=== PATIENT | male | born 1955 | race Caucasian/White ===

== ENCOUNTER → 2016-11-11 | Outpatient (CLI) | payer OTHER, MEDICARE ==
[~2016-11-11] MED LIST: ADVAIR 250-501 EACH INH; ASPIR 8181 MG PO; ASPIR-LOW81 MG PO; ASPIRIN CHEWABL81 MG PO; ASPIRIN325 MG PO; ASPIRIN81 MG PO; BACTRIM DS TAB1 EACH PO; CITALOPRAM HBR20 MG PO; CRESTOR10 MG PO; CUBICIN 500 MG500 MG IV; FENOFIBRATE160 MG PO; HYDROCHLOROTHIA25 MG PO; IMDUR ER TAB 6060 MG PO; INCRUSE ELLI62.5 MCG INH; INVANZ1 GM IV; ISOSORBIDE MONO60 MG PO; KLONOPIN TAB 00.5 MG PO; LEVAQUIN500 MG PO; LEVEMIR100 UNIT/1 SC; LISINOPRIL-HCT1 EAC1 PO; LOPRESSOR50 MG PO; LORTAB 7.5-3251 EACH PO; LYRICA100 MG PO; METHADONE HCL TA5 MG PO; NEXIUM40 MG PO; NITROSTAT 0.40.4 MG SL; NORTRIPTYLINE H50 MG PO; NOVOLOG 10100 UNITS/ INJ; NOVOLOG 10100 UNITS1 SC; NOVOLOG 10100 UNITS2 INJ; PERCOCET 7.5-31 EACH PO; PHENERGAN 12.12.5 M1 PO; PLAVIX 75 MG TA75 MG PO; RANEXA500 MG PO; SINGULAIR10 MG PO; SPIRIVA HANDIH18 MCG INH; SPIRIVA18 MCG INH; TOPROL XL 50 MG50 MG PO; VENTOLIN HFA 66.7 GM INH; VENTOLIN/PROVE0.5 ML INH; VITAMIN B-121000 MC2 SL; VITAMIN D 11000 UNIT PO; ZESTORETIC 20-1 EACH PO; ZYVOX600 MG PO
[2016-11-11 16:48] LABS: HEMOGLOBIN 14.2 gm/dl (14.0-17.5); RED BLOOD COUNT 4.55 M/UL (4.20-5.50); WHITE BLOOD COUNT 5.6 K/UL (4.5-11.0)
[2016-11-11 16:55] LABS: BUN/CREATININE RATIO 10 (0-10)
== END ==
LOC: LAB 15:57
PROVIDERS: Internal Medicine Cardiovascular Disease
DX: I20.9 Angina pectoris, unspecified (principal); I25.10 Atherosclerotic heart disease of native coronary artery without angina pectoris; R42 Dizziness and giddiness; I10 Essential (primary) hypertension; R55 Syncope and collapse; R00.2 Palpitations; R91.8 Other nonspecific abnormal finding of lung field
CPT/HCPCS: 36415; 71020; 80048; 85025

== ENCOUNTER → 2016-11-13 | Outpatient (CLI) | payer OTHER, MEDICARE ==
[~2016-11-13] VITALS: Ht 172.7 cm; Wt 99.8 kg
== END | disposition home or self-care (01) ==
LOC: CATH 06:54
DX: I25.119 Atherosclerotic heart disease of native coronary artery with unspecified angina pectoris (principal); R94.39 Abnormal result of other cardiovascular function study; I10 Essential (primary) hypertension; E11.9 Type 2 diabetes mellitus without complications; I47.2 Ventricular tachycardia; I49.8 Other specified cardiac arrhythmias; I49.5 Sick sinus syndrome; I25.2 Old myocardial infarction; E78.5 Hyperlipidemia, unspecified; F17.210 Nicotine dependence, cigarettes, uncomplicated; J44.9 Chronic obstructive pulmonary disease, unspecified; Z95.5 Presence of coronary angioplasty implant and graft; G47.33 Obstructive sleep apnea (adult) (pediatric); R42 Dizziness and giddiness; R55 Syncope and collapse; Z88.8 Allergy status to other drugs, medicaments and biological substances; Z79.82 Long term (current) use of aspirin; Z79.4 Long term (current) use of insulin; Z79.891 Long term (current) use of opiate analgesic; Z79.899 Other long term (current) drug therapy; M75.01 Adhesive capsulitis of right shoulder; G89.29 Other chronic pain; I51.89 Other ill-defined heart diseases; M62.9 Disorder of muscle, unspecified; M48.8X6 Other specified spondylopathies, lumbar region; K21.9 Gastro-esophageal reflux disease without esophagitis; M25.519 Pain in unspecified shoulder; M96.1 Postlaminectomy syndrome, not elsewhere classified; I27.2 Other secondary pulmonary hypertension
CPT/HCPCS: 82962; C1769; J1644; J2250; J7030; Q0163; Q9963

== ENCOUNTER → 2017-01-27 | Outpatient (CLI) | payer MEDICARE ==
[2017-01-27 07:41] LABS: HEMOGLOBIN 14.4 gm/dl (14.0-17.5); RED BLOOD COUNT 4.59 M/UL (4.20-5.50)
[2017-01-27 08:13] LABS: BUN/CREATININE RATIO 19 (0-10)
== END ==
LOC: LAB 07:13
PROVIDERS: Internal Medicine Cardiovascular Disease
DX: R00.2 Palpitations (principal); R55 Syncope and collapse; I47.2 Ventricular tachycardia; I49.5 Sick sinus syndrome; I10 Essential (primary) hypertension
CPT/HCPCS: 36415; 71020; 80048; 85025

== ENCOUNTER → 2017-01-28 | Outpatient (CLI) | payer MEDICARE | LOC: CATH 09:14 | DX: I25.119 Atherosclerotic heart disease of native coronary artery with unspecified angina pectoris (principal); R55 Syncope and collapse; I47.2 Ventricular tachycardia; I49.8 Other specified cardiac arrhythmias; I25.2 Old myocardial infarction; I49.5 Sick sinus syndrome; I99.8 Other disorder of circulatory system; I51.9 Heart disease, unspecified; I27.2 Other secondary pulmonary hypertension; J44.9 Chronic obstructive pulmonary disease, unspecified; E11.9 Type 2 diabetes mellitus without complications; E78.5 Hyperlipidemia, unspecified; K21.9 Gastro-esophageal reflux disease without esophagitis; F17.200 Nicotine dependence, unspecified, uncomplicated; Z98.61 Coronary angioplasty status; Z88.8 Allergy status to other drugs, medicaments and biological substances; Z79.82 Long term (current) use of aspirin; Z79.02 Long term (current) use of antithrombotics/antiplatelets; Z79.891 Long term (current) use of opiate analgesic; Z79.4 Long term (current) use of insulin; Z79.899 Other long term (current) drug therapy | CPT/HCPCS: 82962; 93620; C1730; C1766; J1644; J2250; J3010; J7040 ==

== ENCOUNTER 2020-10-06 15:57 | Inpatient (IN) | payer MEDICARE, OTHER ==
[~2020-10-06] VITALS: Ht 170.2 cm; Wt 82.6 kg
[~2020-10-06 15:57] MED LIST changes: +ALBUTEROL SULFATE INH; +ASPIRIN EC81 MG PO; +CELEXA20 MG PO; +ECOTRIN81 MG PO; +ELIQUIS5 MG PO; +FLONASE 0.05% N16 GM; +FLOVENT 44 MCG7.9 GM INH; +HUMALOG100 UNIT/3 SC; +HYDROCODON-ACE1 EAC2 PO; +ISOSORBIDE MON120 MG PO; +KETOCONAZOLE; +LEVEMIR100 UNIT/1 SQ; +LYRICA200 MG PO; +MONTELUKAST SOD10 MG PO; +NITROSTAT0.4 MG SL; +NORCO 7.5-3251 EACH PO; +ORBACTIV400 MG IV; +RANEXA1000 MG PO; +ROCEPHIN 22 G/50 ML IV; +ROCEPHIN IV; +VITAMIN D32000 UNI1 PO
[2020-10-06 20:07] LABS: HEMOGLOBIN 14.6 gm/dl (14.0-17.5); RED BLOOD COUNT 4.57 M/UL (4.20-5.50); WHITE BLOOD COUNT 7.7 K/UL (4.5-11.0)
[2020-10-06 20:11] LABS: BUN/CREATININE RATIO 19 (0-10)
[2020-10-06] MEDS ORDERED: CEPHALEXIN500 MG PO (22:04)
[2020-10-06] MEDS ORDERED: TRILEPTAL600 MG PO (22:08)
[2020-10-06] MEDS ORDERED: SPIRIVA RESPIMAT4 GM INH (22:10)
[2020-10-06] MEDS ORDERED: DESYREL 50 MG T50 MG PO (22:10)
[2020-10-06] MEDS ORDERED: CLOPIDOGREL75 MG PO (22:12)
[2020-10-06] MEDS ORDERED: PAMELOR50 MG PO (22:14)
[2020-10-07 07:37] LABS: HEMOGLOBIN 11.4 gm/dl (14.0-17.5); RED BLOOD COUNT 3.71 M/UL (4.20-5.50); WHITE BLOOD COUNT 5.3 K/UL (4.5-11.0)
[2020-10-07 08:03] LABS: BUN/CREATININE RATIO 17 (0-10)
[2020-10-08 05:16] LABS: HEMOGLOBIN 12.9 gm/dl (14.0-17.5); RED BLOOD COUNT 4.03 M/UL (4.20-5.50); WHITE BLOOD COUNT 5.4 K/UL (4.5-11.0)
[2020-10-08 05:54] LABS: BUN/CREATININE RATIO 16 (0-10)
[2020-10-09 05:39] LABS: BUN/CREATININE RATIO 11 (0-10)
[2020-10-10 04:14] LABS: WHITE BLOOD COUNT 4.6 K/UL (4.5-11.0)
[2020-10-10 04:21] LABS: BUN/CREATININE RATIO 11 (0-10)
[2020-10-10 04:26] LABS: RED BLOOD COUNT 3.51 M/UL (4.20-5.50)
[2020-10-10] MEDS ORDERED: CEPHALEXIN500 MG PO (11:43)
[2020-10-10] MEDS ORDERED: ISOSORBIDE MONO30 MG PO (11:54)
[2020-10-10] MEDS ORDERED: LASIX40 MG PO (11:54)
[2020-10-10] MEDS ORDERED: LOPRESSOR50 MG PO (11:54)
== END 2020-10-10 14:10 | disposition home or self-care (01) | DRG 503 ==
LOC: ER1 15:57 → M/S 21:24 → CDU 21:24 → M/S 10-07 01:01
PROVIDERS: Emergency Medicine; Internal Medicine; Podiatrist Foot & Ankle Surgery; ADMIT Internal Medicine
PROC: 0Y6P0Z0 Detachment at Right 1st Toe, Complete, Open Approach (ICD-10-PCS; principal; 2020-10-07 13:23)
DX: M00.071 Staphylococcal arthritis, right ankle and foot (principal); A48.0 Gas gangrene; E11.52 Type 2 diabetes mellitus with diabetic peripheral angiopathy with gangrene; E87.1 Hypo-osmolality and hyponatremia; N17.9 Acute kidney failure, unspecified; Z20.822 Contact with and (suspected) exposure to COVID-19; E11.621 Type 2 diabetes mellitus with foot ulcer; L97.519 Non-pressure chronic ulcer of other part of right foot with unspecified severity; J44.9 Chronic obstructive pulmonary disease, unspecified; E11.65 Type 2 diabetes mellitus with hyperglycemia; E11.40 Type 2 diabetes mellitus with diabetic neuropathy, unspecified; E11.22 Type 2 diabetes mellitus with diabetic chronic kidney disease; N18.2 Chronic kidney disease, stage 2 (mild); M65.871 Other synovitis and tenosynovitis, right ankle and foot; I25.10 Atherosclerotic heart disease of native coronary artery without angina pectoris; B95.61 Methicillin susceptible Staphylococcus aureus infection as the cause of diseases classified elsewhere; I48.91 Unspecified atrial fibrillation; F41.9 Anxiety disorder, unspecified; F17.210 Nicotine dependence, cigarettes, uncomplicated; E11.628 Type 2 diabetes mellitus with other skin complications; L03.031 Cellulitis of right toe; E86.0 Dehydration; Z82.49 Family history of ischemic heart disease and other diseases of the circulatory system; Z88.8 Allergy status to other drugs, medicaments and biological substances; Z95.5 Presence of coronary angioplasty implant and graft; Z83.3 Family history of diabetes mellitus; Z80.9 Family history of malignant neoplasm, unspecified; Z79.4 Long term (current) use of insulin; Z79.899 Other long term (current) drug therapy; Z79.01 Long term (current) use of anticoagulants; Z79.02 Long term (current) use of antithrombotics/antiplatelets
CPT/HCPCS: 36415; 73630; 80048; 80053; 80202; 82550; 82553; 82962; 83605; 83735; 84100; 84484; 85025; 85027; 85610; 85652; 85730; 86140; 87040; 87070; 87077; 87186; 87205; 94640; 94664; 94760; 96365; 96366; 96368; 96372; 96375; 96376; 99284; J1650; J2250; J2270; J2405; J2543; J2795; J3010; J3370; J7030; J7070; U0002

== ENCOUNTER 2021-05-09 14:37 | Inpatient (IN) | payer MEDICARE, OTHER ==
[~2021-05-09] VITALS: Ht 175.3 cm; Wt 83.9 kg
[~2021-05-09 14:37] MED LIST changes: +CEPHALEXIN500 MG PO; +CLOPIDOGREL75 MG PO; +DESYREL 50 MG T50 MG PO; +ISOSORBIDE MONO30 MG PO; +LASIX40 MG PO; +PAMELOR50 MG PO; +SPIRIVA RESPIMAT4 GM INH; +TRILEPTAL600 MG PO
[2021-05-09 14:59] LABS: HEMOGLOBIN 14.7 gm/dl (14.0-17.5); RED BLOOD COUNT 4.72 M/UL (4.20-5.50); WHITE BLOOD COUNT 4.2 K/UL (4.5-11.0)
[2021-05-09 15:26] LABS: BUN/CREATININE RATIO 30 (0-10)
[2021-05-10 01:32] LABS: HEMOGLOBIN 12.8 gm/dl (14.0-17.5)
[2021-05-10 01:34] LABS: RED BLOOD COUNT 4.24 M/UL (4.20-5.50)
[2021-05-10 02:01] LABS: BUN/CREATININE RATIO 35 (0-10)
[2021-05-10 07:57] LABS: HEMOGLOBIN 12.8 gm/dl (14.0-17.5); RED BLOOD COUNT 4.16 M/UL (4.20-5.50)
[2021-05-10 08:14] LABS: BUN/CREATININE RATIO 33 (0-10)
[2021-05-10 09:06] LABS: WHITE BLOOD COUNT 2.4 K/UL (4.5-11.0)
[2021-05-10 17:00] LABS: BUN/CREATININE RATIO 38 (0-10)
[2021-05-11 09:01] LABS: HEMOGLOBIN 12.5 gm/dl (14.0-17.5); RED BLOOD COUNT 4.07 M/UL (4.20-5.50)
[2021-05-11 09:10] LABS: WHITE BLOOD COUNT 3.1 K/UL (4.5-11.0)
[2021-05-11 09:29] LABS: BUN/CREATININE RATIO 38 (0-10)
[2021-05-12 10:33] LABS: RED BLOOD COUNT 3.85 M/UL (4.20-5.50); WHITE BLOOD COUNT 2.4 K/UL (4.5-11.0)
[2021-05-12 11:01] LABS: BUN/CREATININE RATIO 30 (0-10)
[2021-05-13 09:51] LABS: HEMOGLOBIN 12.4 gm/dl (14.0-17.5); RED BLOOD COUNT 4.1 M/UL (4.20-5.50)
[2021-05-13 09:52] LABS: WHITE BLOOD COUNT 3.3 K/UL (4.5-11.0)
[2021-05-13 10:15] LABS: BUN/CREATININE RATIO 26 (0-10)
[2021-05-13] MEDS ORDERED: ZITHROMAX500 MG PO (18:26)
[2021-05-13] MEDS ORDERED: HEMADY20 MG PO (18:26)
[2021-05-13] MEDS ORDERED: OMNICEF 300 MG300 MG PO (18:26)
[2021-05-13] MEDS ORDERED: ZINC SULFATE50 MG PO (18:26)
[2021-05-13] MEDS ORDERED: HUMIBID LA TAB600 MG PO (18:26)
[2021-05-13] MEDS ORDERED: PROTONIX40 MG PO (18:29)
[2021-05-13] MEDS ORDERED: VITAMIN C 500500 MG PO (18:29)
== END 2021-05-13 20:00 | disposition home or self-care (01) | DRG 177 ==
LOC: ER1 14:37 → CDU 19:08 → PROG CARE 19:08
PROVIDERS: Internal Medicine Nephrology; Student in an Organized Health Care Education/Training Program; ADMIT Internal Medicine
PROC: 8E0ZXY6 Isolation (ICD-10-PCS; principal; 2021-05-10)
PROC: XW033E5 Introduction of Remdesivir Anti-infective into Peripheral Vein, Percutaneous Approach, New Technology Group 5 (ICD-10-PCS; 2021-05-10)
PROC: 3E0333Z Introduction of Anti-inflammatory into Peripheral Vein, Percutaneous Approach (ICD-10-PCS; 2021-05-10)
PROC: 30233R1 Transfusion of Nonautologous Platelets into Peripheral Vein, Percutaneous Approach (ICD-10-PCS; 2021-05-11)
DX: U07.1 COVID-19 (principal); J12.82 Pneumonia due to coronavirus disease 2019; J96.01 Acute respiratory failure with hypoxia; J15.9 Unspecified bacterial pneumonia; G92 Toxic encephalopathy; J44.0 Chronic obstructive pulmonary disease with (acute) lower respiratory infection; E87.1 Hypo-osmolality and hyponatremia; N17.9 Acute kidney failure, unspecified; D69.3 Immune thrombocytopenic purpura; D61.818 Other pancytopenia; I10 Essential (primary) hypertension; E11.9 Type 2 diabetes mellitus without complications; F17.210 Nicotine dependence, cigarettes, uncomplicated; I25.10 Atherosclerotic heart disease of native coronary artery without angina pectoris; E86.0 Dehydration; E87.6 Hypokalemia; I48.91 Unspecified atrial fibrillation; G50.0 Trigeminal neuralgia; D50.9 Iron deficiency anemia, unspecified; M54.9 Dorsalgia, unspecified; D69.6 Thrombocytopenia, unspecified; I25.2 Old myocardial infarction; Z95.5 Presence of coronary angioplasty implant and graft; Z88.8 Allergy status to other drugs, medicaments and biological substances; Z98.890 Other specified postprocedural states; Z71.6 Tobacco abuse counseling; Z79.4 Long term (current) use of insulin; Z79.899 Other long term (current) drug therapy
CPT/HCPCS: 36415; 51702; 70450; 71045; 71260; 72125; 72128; 72131; 73030; 80048; 80053; 80307; 81001; 82550; 82553; 82607; 82693; 82746; 82962; 83036; 83605; 83690; 83735; 83874; 84100; 84439; 84443; 84484; 85025; 85610; 85652; 85730; 86140; 86850; 86900; 86901; 93005; 94640; 94664; 94760; 97161; 99285; C9113; J0456; J0696; J1100; J2405; J7030; J7050; P9035; Q9967; U0002

== ENCOUNTER 2021-08-26 16:46 | Emergency (ER) | payer MEDICARE, OTHER ==
[~2021-08-26 16:46] MED LIST changes: +HEMADY20 MG PO; +HUMIBID LA TAB600 MG PO; +OMNICEF 300 MG300 MG PO; +PROTONIX40 MG PO; +VITAMIN C 500500 MG PO; +ZINC SULFATE50 MG PO; +ZITHROMAX500 MG PO
[2021-08-26] MEDS ORDERED: DOXYCYCLINE HY100 M2 PO (18:56)
[2021-08-26] MEDS ORDERED: PREDNISONE 20 M20 MG PO (18:56)
== END 2021-08-26 19:02 | disposition left against medical advice (07) ==
LOC: ER1 16:46
DX: S09.90XA Unspecified injury of head, initial encounter (principal); R06.00 Dyspnea, unspecified; S00.31XA Abrasion of nose, initial encounter; J44.9 Chronic obstructive pulmonary disease, unspecified; I25.10 Atherosclerotic heart disease of native coronary artery without angina pectoris; I25.2 Old myocardial infarction; I10 Essential (primary) hypertension; I48.91 Unspecified atrial fibrillation; F17.200 Nicotine dependence, unspecified, uncomplicated; W19.XXXA Unspecified fall, initial encounter
CPT/HCPCS: 36600; 71045; 82803; 93005; 99285

== ENCOUNTER 2021-09-13 17:01 | Emergency (ER) | payer MEDICARE, OTHER ==
[~2021-09-13 17:01] MED LIST changes: +DOXYCYCLINE HY100 M2 PO; +PREDNISONE 20 M20 MG PO
[2021-09-13 17:41] LABS: HEMOGLOBIN 14.4 gm/dl (14.0-17.5); RED BLOOD COUNT 4.86 M/UL (4.20-5.50)
[2021-09-13 18:04] LABS: BUN/CREATININE RATIO 10 (0-10)
== END 2021-09-13 18:17 | disposition left against medical advice (07) ==
LOC: ER1 17:01
PROVIDERS: Emergency Medicine
DX: R55 Syncope and collapse (principal); S41.112A Laceration without foreign body of left upper arm, initial encounter; D69.6 Thrombocytopenia, unspecified; R11.10 Vomiting, unspecified; I51.9 Heart disease, unspecified; Z20.822 Contact with and (suspected) exposure to COVID-19; J44.9 Chronic obstructive pulmonary disease, unspecified; W22.8XXA Striking against or struck by other objects, initial encounter
CPT/HCPCS: 0240U; 36600; 71045; 80053; 80307; 81001; 82140; 82550; 82553; 82803; 83605; 83735; 83874; 83880; 84484; 85025; 85610; 85730; 87040; 87086; 93005; 96374; 99283; G0480; J2405

== ENCOUNTER 2022-01-21 17:03 | Emergency (ER) | payer MEDICARE, OTHER ==
[2022-01-21 17:55] LABS: HEMOGLOBIN 14.3 gm/dl (14.0-17.5); RED BLOOD COUNT 4.52 M/UL (4.20-5.50); WHITE BLOOD COUNT 7.3 K/UL (4.5-11.0)
[2022-01-21 18:16] LABS: BUN/CREATININE RATIO 14 (0-10)
[2022-01-21] MEDS ORDERED: PROTONIX40 MG PO (19:56)
[2022-01-21] MEDS ORDERED: ONDANSETRON ODT4 MG SL (19:56)
== END 2022-01-21 20:10 | disposition home or self-care (01) ==
LOC: ER1 17:03
PROVIDERS: Physician Assistant
DX: R10.13 Epigastric pain (principal); E87.1 Hypo-osmolality and hyponatremia; I48.91 Unspecified atrial fibrillation; E11.9 Type 2 diabetes mellitus without complications; I10 Essential (primary) hypertension; K21.9 Gastro-esophageal reflux disease without esophagitis; J44.9 Chronic obstructive pulmonary disease, unspecified; F17.200 Nicotine dependence, unspecified, uncomplicated; Z95.5 Presence of coronary angioplasty implant and graft; Z88.8 Allergy status to other drugs, medicaments and biological substances
CPT/HCPCS: 71045; 80053; 82550; 82553; 83690; 84484; 85025; 93005; 99283

== ENCOUNTER 2022-01-28 16:12 | Emergency (ER) | payer MEDICARE, OTHER ==
[~2022-01-28 16:12] MED LIST changes: -CELEXA20 MG PO; +CELEXA40 MG PO; +HUMALOG100 UNIT/1 SQ; -HUMALOG100 UNIT/3 SC; -HYDROCODON-ACE1 EAC2 PO; +HYDROCODON-ACE1 EAC6 PO; +ONDANSETRON ODT4 MG SL; -RANEXA1000 MG PO; +WIXELA 250-501 EACH INH
[2022-01-29] MEDS ORDERED: LEVEMIR100 UNIT/1 SQ (15:10)
[2022-01-29] MEDS ORDERED: ZOFRAN ODT 4 MG4 MG PO (15:15)
[2022-01-29] MEDS ORDERED: PROTONIX 40 MG40 M1 PO (15:15)
[2022-01-29] MEDS ORDERED: ISOSORBIDE MON120 MG PO (15:15)
[2022-01-29] MEDS ORDERED: POTASSIUM CHLO20 ME2 PO (15:16)
[2022-01-29] MEDS ORDERED: CLOPIDOGREL75 MG PO (15:16)
[2022-01-29] MEDS ORDERED: FUROSEMIDE40 MG PO (15:17)
[2022-01-29] MEDS ORDERED: MAGOX 400400 MG PO (15:17)
[2022-01-29] MEDS ORDERED: ELIQUIS5 MG PO (15:17)
[2022-01-29] MEDS ORDERED: LISINOPRIL20 MG PO (15:18)
[2022-01-29] MEDS ORDERED: LOPRESSOR50 MG PO (15:19)
[2022-01-29] MEDS ORDERED: FERROUS SULFAT325 MG PO (15:19)
== END 2022-01-28 22:30 | disposition left against medical advice (07) ==
LOC: ER1 16:12
DX: Z53.21 Procedure and treatment not carried out due to patient leaving prior to being seen by health care provider (principal)

== ENCOUNTER 2022-01-29 12:10 | Inpatient (IN) | payer MEDICARE, OTHER ==
[~2022-01-29] VITALS: Ht 172.7 cm; Wt 78.9 kg
[2022-01-29 14:34] LABS: HEMOGLOBIN 13.2 gm/dl (14.0-17.5); RED BLOOD COUNT 4.22 M/UL (4.20-5.50)
[2022-01-29 14:35] LABS: WHITE BLOOD COUNT 6.9 K/UL (4.5-11.0)
[2022-01-29 14:58] LABS: BUN/CREATININE RATIO 17 (0-10)
[2022-01-29] MEDS ORDERED: LEVEMIR100 UNIT/1 SQ (15:10)
[2022-01-29] MEDS ORDERED: ISOSORBIDE MON120 MG PO (15:15)
[2022-01-29] MEDS ORDERED: PROTONIX 40 MG40 M1 PO (15:15)
[2022-01-29] MEDS ORDERED: ZOFRAN ODT 4 MG4 MG PO (15:15)
[2022-01-29] MEDS ORDERED: POTASSIUM CHLO20 ME2 PO (15:16)
[2022-01-29] MEDS ORDERED: CLOPIDOGREL75 MG PO (15:16)
[2022-01-29] MEDS ORDERED: FUROSEMIDE40 MG PO (15:17)
[2022-01-29] MEDS ORDERED: ELIQUIS5 MG PO (15:17)
[2022-01-29] MEDS ORDERED: MAGOX 400400 MG PO (15:17)
[2022-01-29] MEDS ORDERED: LISINOPRIL20 MG PO (15:18)
[2022-01-29] MEDS ORDERED: FERROUS SULFAT325 MG PO (15:19)
[2022-01-29] MEDS ORDERED: LOPRESSOR50 MG PO (15:19)
--- NOTE | 2022-01-29 18:29 | NUR ---
patient off the floor to smoke.
[2022-01-30 06:14] LABS: RED BLOOD COUNT 3.94 M/UL (4.20-5.50); WHITE BLOOD COUNT 3.8 K/UL (4.5-11.0)
[2022-01-30 06:38] LABS: BUN/CREATININE RATIO 21 (0-10)
--- NOTE | 2022-01-30 14:27 | NUR ---
patient off the floor unable to get labs and urine specimen. patient smoker
[2022-01-30 16:10] LABS: BUN/CREATININE RATIO 23 (0-10)
[2022-01-30 19:47] LABS: BUN/CREATININE RATIO 23 (0-10)
[2022-01-31 03:40] LABS: HEMOGLOBIN 11.7 gm/dl (14.0-17.5); RED BLOOD COUNT 3.78 M/UL (4.20-5.50)
[2022-01-31 04:32] LABS: BUN/CREATININE RATIO 26 (0-10)
[2022-01-31 16:47] LABS: BUN/CREATININE RATIO 30 (0-10)
--- NOTE | 2022-02-01 02:29 | NUR ---
ACCIDENTLY ENTERED WRONG ORDERS FOR THIS PT THAT WAS NOT FOR THIS PT. PT IS NOT HAVING A DEBRIDEMENT/WOUND CLOSING IN THE AM. PT IS NOT NPO. ASKED MULTIPLE STAFF IN ASSISTANCE OF D/C ORDERS. ONLY WAS ABLE TO D/C AND THEN IT COMP THE ORDERS NEVER WAS SUCESSFUL AT DELETING FROM PT.
[2022-02-01 03:39] LABS: HEMOGLOBIN 10.8 gm/dl (14.0-17.5); RED BLOOD COUNT 3.49 M/UL (4.20-5.50); WHITE BLOOD COUNT 7.4 K/UL (4.5-11.0)
[2022-02-01 03:53] LABS: BUN/CREATININE RATIO 29 (0-10)
[2022-02-01] MEDS ORDERED: SODIUM CHLORIDE1 G1 PO (09:57)
[2022-02-01] MEDS ORDERED: PREDNISONE 20 M20 MG PO (09:57)
== END 2022-02-01 13:10 | disposition home or self-care (01) | DRG 813 ==
LOC: ER1 12:10 → CDU 14:10 → MED SURG 4 14:10
PROVIDERS: Emergency Medicine; Internal Medicine Nephrology; Physician Assistant Medical; Registered Nurse; ADMIT Internal Medicine
DX: D69.3 Immune thrombocytopenic purpura (principal); E22.2 Syndrome of inappropriate secretion of antidiuretic hormone; Z20.822 Contact with and (suspected) exposure to COVID-19; I10 Essential (primary) hypertension; I25.10 Atherosclerotic heart disease of native coronary artery without angina pectoris; E11.9 Type 2 diabetes mellitus without complications; J44.9 Chronic obstructive pulmonary disease, unspecified; T43.225A Adverse effect of selective serotonin reuptake inhibitors, initial encounter; F17.210 Nicotine dependence, cigarettes, uncomplicated; D50.9 Iron deficiency anemia, unspecified; M54.9 Dorsalgia, unspecified; G89.29 Other chronic pain; E78.5 Hyperlipidemia, unspecified; R91.1 Solitary pulmonary nodule; I25.2 Old myocardial infarction; Z95.5 Presence of coronary angioplasty implant and graft; Z79.4 Long term (current) use of insulin; Z79.01 Long term (current) use of anticoagulants; Z79.82 Long term (current) use of aspirin; Z98.890 Other specified postprocedural states; Z88.1 Allergy status to other antibiotic agents; Z88.8 Allergy status to other drugs, medicaments and biological substances
CPT/HCPCS: 36415; 71045; 71250; 80048; 80053; 81001; 82436; 82533; 82550; 82553; 82962; 83735; 83935; 84133; 84295; 84300; 84443; 84484; 85025; 85027; 93005; 96374; 99285; G0378; J2930

== ENCOUNTER 2022-02-08 17:14 | Emergency (ER) | payer MEDICARE, OTHER ==
[~2022-02-08 17:14] MED LIST changes: +FERROUS SULFAT325 MG PO; +FUROSEMIDE40 MG PO; +LISINOPRIL20 MG PO; +MAGOX 400400 MG PO; +POTASSIUM CHLO20 ME2 PO; +PROTONIX 40 MG40 M1 PO; +SODIUM CHLORIDE1 G1 PO; +ZOFRAN ODT 4 MG4 MG PO
[2022-02-08] MEDS ORDERED: CEPHALEXIN500 MG PO (18:59)
== END 2022-02-08 19:05 | disposition home or self-care (01) ==
LOC: ER1 17:14
DX: S51.811A Laceration without foreign body of right forearm, initial encounter (principal); I25.10 Atherosclerotic heart disease of native coronary artery without angina pectoris; I10 Essential (primary) hypertension; E11.9 Type 2 diabetes mellitus without complications; Z23 Encounter for immunization; W18.40XA Slipping, tripping and stumbling without falling, unspecified, initial encounter; Y92.009 Unspecified place in unspecified non-institutional (private) residence as the place of occurrence of the external cause
CPT/HCPCS: 12004; 73090; 90471; 90715; 99283

== ENCOUNTER → 2022-02-28 | Outpatient (CLI) | payer MEDICARE, OTHER ==
[2022-02-28 11:16] LABS: BUN/CREATININE RATIO 16 (0-10)
== END ==
LOC: LAB 09:30
PROVIDERS: Internal Medicine Nephrology
DX: E87.1 Hypo-osmolality and hyponatremia (principal)
CPT/HCPCS: 36415; 80048

== ENCOUNTER → 2022-03-05 | Outpatient (CLI) | payer MEDICARE, OTHER ==
[2022-03-05 11:47] LABS: HEMOGLOBIN 12.9 gm/dl (14.0-17.5); RED BLOOD COUNT 4.22 M/UL (4.20-5.50); WHITE BLOOD COUNT 7.5 K/UL (4.5-11.0)
[2022-03-05 12:05] LABS: BUN/CREATININE RATIO 20 (0-10)
== END ==
LOC: LAB 11:11
PROVIDERS: Ophthalmology
DX: Z01.812 Encounter for preprocedural laboratory examination (principal); E87.1 Hypo-osmolality and hyponatremia; H53.2 Diplopia
CPT/HCPCS: 36415; 80048; 83036; 85025; 85652; 86140

== ENCOUNTER → 2022-04-16 | Outpatient (CLI) | payer MEDICARE, OTHER ==
[~2022-04-16] MED LIST changes: +ALBUTEROL2.5 MG/3 M INH; +CELEXA20 MG PO; +FLUTICASONE SPRAY; +FLUTICASONE SPRAY INH; +KETOCONAZOLE120 ML TOP; +LEVOFLOXACIN750 MG PO; +MAGNESIUM OXID400 M1 PO; +MELATONIN10 M2 PO; +OMEPRAZOLE40 MG PO; +ONDANSETRON ODT8 MG PO; +OXCARBAZEPINE600 MG PO; +PERCOCET 5/325 T1 EA PO; +PREDNISONE20 MG PO; +PROAIR HFA8.5 GM INH; +PROMETHAZINE12.5 M1 PO; +VASCEPA1 GM PO; +WIXELA 500-501 EACH INH
[2022-04-16 11:32] LABS: HEMOGLOBIN 12.4 gm/dl (14.0-17.5); RED BLOOD COUNT 3.98 M/UL (4.20-5.50); WHITE BLOOD COUNT 6.1 K/UL (4.5-11.0)
[2022-04-16 12:02] LABS: BUN/CREATININE RATIO 23 (0-10)
== END ==
LOC: OPSV2 10:00
PROVIDERS: Anesthesiology
DX: Z53.9 Procedure and treatment not carried out, unspecified reason (principal)
CPT/HCPCS: 36415; 80048; 85025

== ENCOUNTER 2022-04-18 06:20 | Inpatient (IN) | payer MEDICARE, OTHER ==
[~2022-04-18] VITALS: Ht 170.2 cm; Wt 82.6 kg
[~2022-04-18 06:20] MED LIST changes: -FLUTICASONE SPRAY INH; -LEVOFLOXACIN750 MG PO; -MAGNESIUM OXID400 M1 PO; -OXCARBAZEPINE600 MG PO; -PERCOCET 5/325 T1 EA PO; -VASCEPA1 GM PO
[2022-04-18 06:51] LABS: RED BLOOD COUNT 3.84 M/UL (4.20-5.50)
[2022-04-18 06:53] LABS: WHITE BLOOD COUNT 7.7 K/UL (4.5-11.0)
[2022-04-18] MEDS ORDERED: MAGNESIUM OXID400 M1 PO (07:08)
[2022-04-18] MEDS ORDERED: LEVOFLOXACIN750 MG PO (07:09)
[2022-04-18] MEDS ORDERED: LEVEMIR100 UNIT/1 SQ (07:10)
[2022-04-18 07:11] LABS: BUN/CREATININE RATIO 23 (0-10)
[2022-04-18] MEDS ORDERED: KETOCONAZOLE120 ML TOP (07:11)
[2022-04-18] MEDS ORDERED: ONDANSETRON ODT8 MG PO (07:11)
[2022-04-18] MEDS ORDERED: LISINOPRIL-HCT1 EAC1 PO (07:11)
[2022-04-18] MEDS ORDERED: OXCARBAZEPINE600 MG PO (07:12)
[2022-04-18] MEDS ORDERED: PROMETHAZINE12.5 M1 PO (07:13)
[2022-04-18] MEDS ORDERED: FLUTICASONE SPRAY INH (07:14)
[2022-04-18] MEDS ORDERED: VASCEPA1 GM PO (07:14)
[2022-04-18] MEDS ORDERED: RANEXA500 MG PO (07:14)
[2022-04-18] MEDS ORDERED: OMEPRAZOLE40 MG PO (14:15)
[2022-04-19 06:55] LABS: RED BLOOD COUNT 3.49 M/UL (4.20-5.50)
[2022-04-19 06:56] LABS: WHITE BLOOD COUNT 5.2 K/UL (4.5-11.0)
[2022-04-19 07:08] LABS: BUN/CREATININE RATIO 25 (0-10)
[2022-04-19 10:36] LABS: HEMOGLOBIN 10.3 gm/dl (14.0-17.5); RED BLOOD COUNT 3.32 M/UL (4.20-5.50)
[2022-04-19 10:37] LABS: WHITE BLOOD COUNT 14.4 K/UL (4.5-11.0)
[2022-04-19 10:56] LABS: BUN/CREATININE RATIO 21 (0-10)
[2022-04-20 07:09] LABS: HEMOGLOBIN 10.2 gm/dl (14.0-17.5); RED BLOOD COUNT 3.28 M/UL (4.20-5.50); WHITE BLOOD COUNT 11.7 K/UL (4.5-11.0)
[2022-04-20 07:28] LABS: BUN/CREATININE RATIO 24 (0-10)
[2022-04-20] MEDS ORDERED: PERCOCET 5/325 T1 EA PO (13:27)
[2022-04-20] MEDS ORDERED: SODIUM CHLORIDE1 G1 PO (14:41)
== END 2022-04-20 15:00 | disposition left against medical advice (07) | DRG 799 ==
LOC: OR 06:20 → CCU 12:46
PROVIDERS: Internal Medicine Nephrology; Physician Assistant; ADMIT Surgery
PROC: 30233R1 Transfusion of Nonautologous Platelets into Peripheral Vein, Percutaneous Approach (ICD-10-PCS; 2022-04-19)
PROC: 07BP4ZZ Excision of Spleen, Percutaneous Endoscopic Approach (ICD-10-PCS; principal; 2022-04-19 10:30)
PROC: B24BZZZ Ultrasonography of Heart with Aorta (ICD-10-PCS; 2022-04-20)
DX: D69.3 Immune thrombocytopenic purpura (principal); J18.9 Pneumonia, unspecified organism; J96.01 Acute respiratory failure with hypoxia; J44.0 Chronic obstructive pulmonary disease with (acute) lower respiratory infection; J44.1 Chronic obstructive pulmonary disease with (acute) exacerbation; E87.1 Hypo-osmolality and hyponatremia; R91.8 Other nonspecific abnormal finding of lung field; I25.10 Atherosclerotic heart disease of native coronary artery without angina pectoris; E83.42 Hypomagnesemia; E11.40 Type 2 diabetes mellitus with diabetic neuropathy, unspecified; F17.200 Nicotine dependence, unspecified, uncomplicated; D64.9 Anemia, unspecified; Z95.5 Presence of coronary angioplasty implant and graft; Z98.890 Other specified postprocedural states; Z89.411 Acquired absence of right great toe; Z88.8 Allergy status to other drugs, medicaments and biological substances; Z83.3 Family history of diabetes mellitus; Z82.49 Family history of ischemic heart disease and other diseases of the circulatory system; Z80.1 Family history of malignant neoplasm of trachea, bronchus and lung
CPT/HCPCS: ECHO; 36415; 36430; 71046; 80048; 80053; 82436; 82533; 82803; 82962; 83735; 83880; 83935; 84133; 84295; 84300; 84443; 85025; 85027; 85610; 86900; 86901; 93306; 94640; 94664; 94760; J0360; J0690; J1100; J1568; J1940; J2001; J2185; J2270; J2370; J2405; J2704; J2710; J2930; J3010; J3475; P9035